=== PATIENT | female | born 1930 | race Caucasian/White ===

== ENCOUNTER 2016-08-01 07:29 | Inpatient (IN) | payer MEDICARE, BC ==
[~2016-08-01] VITALS: Ht 147.3 cm; Wt 70.8 kg
[2016-08-01 07:50] LABS: BASO % 0 % (0-3); EOS % 1 % (0-3); HEMATOCRIT 37.4 % (36.0-47.0); HEMOGLOBIN 12.8 g/dL (12.0-15.5); LYMPH # 0.8 x10^3/uL (1.0-4.8); LYMPH % 11 % (24-48); MEAN CORPUSCULAR HEMOGLOBIN 29 pg (25-35); MEAN CORPUSCULAR HGB CONC 34 g/dL (31-37); MEAN CORPUSCULAR VOLUME 84 fL (79-100); MONO % 7 % (0-9); NEUT % 80 % (31-73); PLATELET COUNT 169 x10^3/uL (140-400); RED BLOOD COUNT 4.44 x10^6/uL (3.50-5.40); RED CELL DISTRIBUTION WIDTH 13.1 % (11.5-14.5); WHITE BLOOD COUNT 7.6 x10^3/uL (4.0-11.0)
--- NOTE | 2016-08-01 07:53 | PHYS DOC ---
Past Medical History Past Medical History: A-Fib, Hypertension Adult General Chief Complaint Chief Complaint: SHORTNESS OF BREATH HPI HPI Patient is a 86 year old female who presents with shortness of breath. She has advanced Alzheimer's and is a poor historian. Daughter came to bedside and reported that the patient had increased work of breathing. She contacted EMS who reported her oxygen saturation was 88 upon arrival. Patient does not normally wear oxygen. She's been experiencing proximal atrial fibrillation, treated with metoprolol. Her blood pressure has been trending high. EMS reports her blood pressure was 215/90, troponin is was placed and the patient and the systolic pressure dropped to 144 and they removed the Nitropaste. EMS reported hearing crackles. She was also placed on BiPAP and reportedly improved significantly with the BiPAP. She received one quarter of her breathing treatment but had no wheezing and this was stopped. Patient has no history of asthma or COPD. She has exertional dyspnea but no orthopnea reported. No significant weight gain. She is followed by Dr. Glover and Dr. Ac Review of Systems Review of Systems Pt denies complaints but has Alzheimer's Constitutional: Denies fever or chills [] Eyes: Denies change in visual acuity, redness, or eye pain [] HENT: Denies nasal congestion or sore throat [] Respiratory: Denies cough or shortness of breath [] Cardiovascular: No additional information not addressed in HPI [] GI: Denies abdominal pain, nausea, vomiting, bloody stools or diarrhea [] : Denies dysuria or hematuria [] Musculoskeletal: Denies back pain or joint pain [] Integument: Denies rash or skin lesions [] Neurologic: Denies headache, focal weakness or sensory changes [] Endocrine: Denies polyuria or polydipsia [] Current Medications Current Medications Current Medications Medications (Trade) Dose Ordered Sig/Steven Start Time Stop Time Status Last Admin Dose Admin Acetaminophen (Tylenol) 650 mg PRN Q4HRS PRN 08/01/16 08:30 08/02/16 08:29 UNV Furosemide (Lasix) 20 mg 1X ONCE 08/01/16 08:30 08/01/16 08:31 DC Ondansetron HCl (Zofran) 4 mg PRN Q8HRS PRN 08/01/16 08:30 08/02/16 08:29 UNV Allergies Allergies Allergies Coded Allergies Type Severity Reaction Last Updated Verified No Known Drug Allergies 08/01/16 No Physical Exam Physical Exam Constitutional: Well developed, well nourished, no acute distress, non-toxic appearance. [] HENT: Normocephalic, atraumatic, bilateral external ears normal, oropharynx moist, no oral exudates, nose normal. [] Eyes: PERRLA, EOMI, conjunctiva normal, no discharge. [] Neck: Normal range of motion, no tenderness, supple, no stridor. [] Cardiovascular:Heart rate regular with regular rhythm, no murmur [] Lungs & Thorax: Bilateral breath sounds , moderate air movement, no appreciable crackles Abdomen: Bowel sounds normal, soft, no tenderness, no masses, no pulsatile masses. [] Skin: Warm, dry, no erythema, no rash. [] Back: No tenderness, no CVA tenderness. [] Extremities: No tenderness, no cyanosis, no clubbing, ROM intact, no edema. [] Neurologic: Alert and oriented X 3 but is confused about recent events, normal motor function, normal sensory function, no focal deficits noted. [] Psychologic: Affect normal, judgement normal, mood normal. [] Current Patient Data Vital Signs Vital Signs Date Time Temp Pulse Resp B/P (MAP) Pulse Ox O2 Delivery O2 Flow Rate FiO2 08/01/16 07:29 99.2 94 28 188/93 (124) 100 Venturi Mask 50.0 99.2 Lab Values Laboratory Tests Test 08/01/16 07:38 White Blood Count 7.6 x10^3/uL (4.0-11.0) Red Blood Count 4.44 x10^6/uL (3.50-5.40) Hemoglobin 12.8 g/dL (12.0-15.5) Hematocrit 37.4 % (36.0-47.0) Mean Corpuscular Volume 84 fL (79-100) Mean Corpuscular Hemoglobin 29 pg (25-35) Mean Corpuscular Hemoglobin Concent 34 g/dL (31-37) Red Cell Distribution Width 13.1 % (11.5-14.5) Platelet Count 169 x10^3/uL (140-400) Neutrophils (%) (Auto) 80 % (31-73) H Lymphocytes (%) (Auto) 11 % (24-48) L Monocytes (%) (Auto) 7 % (0-9) Eosinophils (%) (Auto) 1 % (0-3) Basophils (%) (Auto) 0 % (0-3) Neutrophils # (Auto) 6.1 x10^3uL (1.8-7.7) Lymphocytes # (Auto) 0.8 x10^3/uL (1.0-4.8) L Monocytes # (Auto) 0.5 x10^3/uL (0.0-1.1) Eosinophils # (Auto) 0.1 x10^3/uL (0.0-0.7) Basophils # (Auto) 0.0 x10^3/uL (0.0-0.2) Prothrombin Time 13.7 SEC (11.7-14.0) Prothrombin Time INR 1.1 (0.8-1.1) Sodium Level 127 mmol/L (136-145) L Potassium Level 4.4 mmol/L (3.5-5.1) Chloride Level 93 mmol/L (98-107) L Carbon Dioxide Level 26 mmol/L (21-32) Anion Gap 8 (6-14) Blood Urea Nitrogen 11 mg/dL (7-20) Creatinine 1.0 mg/dL (0.6-1.0) Estimated GFR (Cockcroft-Gault) 52.3 BUN/Creatinine Ratio 11 (6-20) Glucose Level 132 mg/dL (70-99) H Lactic Acid Level 1.4 mmol/L (0.4-2.0) Calcium Level 8.6 mg/dL (8.5-10.1) Magnesium Level 1.8 mg/dL (1.8-2.4) Total Bilirubin 0.8 mg/dL (0.2-1.0) Aspartate Amino Transferase (AST) 26 U/L (15-37) Alanine Aminotransferase (ALT) 22 U/L (14-59) Alkaline Phosphatase 83 U/L (46-116) Creatine Kinase 88 U/L (26-192) Creatine Kinase MB (Mass) 1.6 ng/mL (0.0-3.6) Creatine Kinase MB Relative Index 1.8 % (0-4) Troponin I Quantitative < 0.017 ng/mL (0.000-0.055) JN-Aad-Z-Type Natriuretic Peptide 1904 pg/mL (0-449) H Total Protein 7.1 g/dL (6.4-8.2) Albumin 3.4 g/dL (3.4-5.0) Albumin/Globulin Ratio 0.9 (1.0-1.7) L Laboratory Tests 08/01/16 07:38 Laboratory Tests 08/01/16 07:38 EKG EKG 94 bpm, sinus, normal axis, normal intervals, no ST elevation or depression appreciated, nonischemic T waves, interpreted by me [] Radiology/Procedures Radiology/Procedures Chest x-ray: Portable chest, 08/01/2016: History: Shortness of breath and hypoxia Comparison is made to a study from 08/23/2007. The heart is mildly enlarged. There is calcific plaquing of the aorta. The pulmonary vascularity is prominent. There is mild infrahilar infiltrate on the right. No definite pleural fluid is seen. IMPRESSION: 1. Mild cardiomegaly with borderline vascular congestion. 2. Mild right basilar infiltrate suggesting early pulmonary edema versus pneumonia. Course & Med Decision Making Course & Med Decision Making Pertinent Labs and Imaging studies reviewed. (See chart for details) Patient's O2 sats normal on BiPAP, switch to a Ventimask and was at 100%. Switched to nasal cannula and patient tolerated well. Satting 96% on 2 L nasal cannula. Labs, urinalysis ordered along with chest x-ray and EKG. Pt maintaining sats on 2L NC of 97%. Pt has increased BNP with sinus congestion and pleural effusion on CXR. Discussed with Dr. Yun, who will see the pt. 20mg IV lasix given, admitted to [facility] under Dr. Mary Jorgensen Disclaimer Dragon Disclaimer This electronic medical record was generated, in whole or in part, using a voice recognition dictation system. Departure Departure Impression: Primary Impression: Acute respiratory failure Additional Impressions: Malignant hypertension Systolic CHF, acute Referrals: SLOAN SUGGS MD (PCP) Problem Qualifiers JUDY HUDDLESTON MD August 01, 2016 07:53
--- NOTE | 2016-08-01 08:03 | RAD ---
Portable chest, 08/01/2016: History: Shortness of breath and hypoxia Comparison is made to a study from 08/23/2007. The heart is mildly enlarged. There is calcific plaquing of the aorta. The pulmonary vascularity is prominent. There is mild infrahilar infiltrate on the right. No definite pleural fluid is seen. IMPRESSION: 1. Mild cardiomegaly with borderline vascular congestion. 2. Mild right basilar infiltrate suggesting early pulmonary edema versus pneumonia.
[2016-08-01 08:06] LABS: CALCIUM 8.6 mg/dL (8.5-10.1); GFR 52.3; INR 1.1 (0.8-1.1); POTASSIUM 4.4 mmol/L (3.5-5.1); PROTHROMBIN TIME PATIENT 13.7 SEC (11.7-14.0)
[2016-08-01 08:11] LABS: ALBUMIN 3.4 g/dL (3.4-5.0); ALBUMIN/GLOBULIN RATIO 0.9 (1.0-1.7); MAGNESIUM 1.8 mg/dL (1.8-2.4); TOTAL BILIRUBIN 0.8 mg/dL (0.2-1.0); TOTAL PROTEIN 7.1 g/dL (6.4-8.2)
[2016-08-01 08:19] LABS: CKMB MASS 1.6 ng/mL (0.0-3.6)
[2016-08-01] MEDS ORDERED: ONDANSETRON PF 4 MG/2 ML VIAL. IV PRN ×2 (08:30→09:16)
[2016-08-01] MEDS ORDERED: ACETAMINOPHEN 325 MG TABLET. PO PRN (08:30)
[2016-08-01] MEDS ORDERED: FUROSEMIDE 20 MG/2 ML VIAL. IVP ONE (08:30)
--- NOTE | 2016-08-01 09:06 | ACF ---
Admission Forms Criteria RESPIRATORY FAILURE [facility] Clinical Indications for Admission to Inpatient Care (Place 'X' for any and all applicable criteria): Hospital admission is needed for appropriate care of the patient because of acute respiratory failure or insufficiency as indicated by ANY ONE of the following(1)(2)(3)(4)(5)(6)(7)(8): [X]I. Mechanical ventilation needed (acute invasive or noninvasive) [ ]II. Severe ventilation deficit as indicated by ANY ONE of the following (9) [ ]a) Respiratory acidosis (pH less than 7.32 and partial pressure of carbon dioxide greater than 40 mm Hg (5.3 kPa)) [ ]b) Partial pressure of carbon dioxide greater than 44 mm Hg (5.9 kPa ) (new) [ ]c) Airflow measurements less than 25% of predicted (eg, peak expiratory flow rate less than 100 L/minute) [ ]d) Forced vital capacity less than 15 mL/kg of ideal body weight, or 50% decrease in vital capacity from baseline [ ]III. Noncardiac pulmonary edema not resolving with rapid emergency treatment (8) [ ]IV. Severe respiratory distress as indicated by ANY ONE of the following: [ ]a) Severe tachypnea (respiratory rate greater than 30, greater than 45 for 6-month-old, greater than 60 for ) [ ]b) Severe hypoxemia (partial pressure of oxygen less than 50 mm Hg ( 6.7 kPa) on greater than 50% oxygen or partial pressure of oxygen to FIO2 ratio less than 200) [ ]c) Mental status deterioration from respiratory disease [ ]V. Airway obstruction or inadequate protection [A](10)(11) The original [employer] content created by [employer] has been revised. The portions of the content which have been revised are identified through the use of italic text or in bold, and [employer] has neither reviewed nor approved the modified material. All other unmodified content is copyright [employer]. Please see references footnoted in the original [employer] edition 2016 Admission Criteria Met?: Yes JOSHUA KUO August 01, 2016 09:06
--- NOTE | 2016-08-01 09:15 | PDOC1 ---
History and Physical Date of Admission Date of Admission DATE: 08/01/16 TIME: 09:04 Identification/Chief Complaint Chief Complaint confusion Problems: Source Source: Caregiver, Chart review, Patient History of Present Illness History of Present Illness 86 y.o female, lives at home sometimes with grandtr, but mostly by herself brought in by EMS bec of confusion, low O2 sats and high BP. PatienT not the best historian, she does not remember what has happened and dtr who is an RN fills us in with the details. As per ER MD, sats was 88% on the field, BP 215 systolic, started on BIPAP and did well, Sats now 98% on 2 LNC, no known COPD, smoked in younger yrs, HTN, does run high, some compliance issues with meds (she forgets). CXR shows dima mild pulm edema, getting 20 IVlasix now., BP did come down after the nitro paste and she does feel significantly better, SBP 150s now, Hungry, wants to eat. Does not use assistive device at home, Noteworthy, 1 month ago dx to have paroxysmal atrial fib, started on long acting BB by PCP Stuart Saini, (metoprolol) Planned for KATELYN? HAs an appt with cards as OP PLanned on xarelto or eliquis - dtr relays frequent nose bleeds LAbs: Na 127, BNP 1900, rest of labs unimpressive. Dw dtr code status, DNR, no HD, no aggressive measures. HAs been feeling unwell, fatigued, few mos now maybe, not usual for her per dtr, PE: expiratory wheeze, NSR now, no leg edema Past Medical History Cardiovascular: HTN Past Surgical History Past Surgical History: , Other (prosthetic eye left) Family History Family History: Heart Disease, High Cholestrol, Hypertension Social History Smoke: Quit ALCOHOL: none Drugs: None Current Problem List Problem List Problems Medical Problems: (1) Acute respiratory failure Status: Acute (2) Malignant hypertension Status: Acute (3) Systolic CHF, acute Status: Acute Problems: Current Medications Current Medications Current Medications Furosemide (Lasix) 20 mg 1X ONCE IVP Last administered on 08/01/16t 08:47; Start 08/01/16 at 08:30; Stop 08/01/16 at 08:31; Status DC Ondansetron HCl (Zofran) 4 mg PRN Q8HRS PRN IV NAUSEA/VOMITING; Start 08/01/16 at 08:30; Stop 08/02/16 at 08:29 Acetaminophen (Tylenol) 650 mg PRN Q4HRS PRN PO FEVER; Start 08/01/16 at 08:30 ; Stop 08/02/16 at 08:29 Allergies Allergies: Coded Allergies: No Known Drug Allergies (Unverified , 08/01/16) ROS General: YES: Fatigue Eyes: No Blurry vision, No Decreased vision, No Double vision, No Dry eyes, No Excessive tearing, No Eye Pain, No Itchy Eyes, No Loss of vision, No Photophobia , No Scotomata, No Uses contacts, No Uses glasses, No Other Hematological and Lymphatic: YES: Other (nose bleeds) ENDOCRINE: No: Breast Changes, Galactorrhea, Hair Pattern Changes, Hot Flashes , Malaise/lethargy, Mood Swings, Palpitations, Polydipsia/polyuria, Skin Changes , Temperature Intolerance, Unexpected Weight Changes, Other Respiratory: YES: Shortness of breath, SOB with excertion Cardiovascular: No Chest Pain, No Palpitations, No Orthopnea, No Paroxysmal Noc. Dyspnea, No Edema, No Lt Headedness, No Other Gastrointestinal: No Nausea, No Vomiting, No Abdominal Pain, No Diarrhea, No Constipation, No Melena, No Hematochezia, No Other Genitourinary: No Dysuria, No Frequency, No Incontinence, No Hematuria, No Retention, No Discharge, No Urgency, No Pain, No Flank Pain, No Other, No , No , No , No , No , No , No Musculoskeletal: No Gait Disturbance, No Joint Pain, No Joint Stiffness, No Joint Swelling, No Muscle Pain, No Muscular Weakness, No Pain In:, No Swelling In:, No Other Neurological: No Behavorial Changes, No Bowel/Bladder ControlChng, No Confusion , No Dizziness, No Gait Disturbance, No Headaches, No Impaired Coord/balance, No Memory Loss, No Numbness/Tingling, No Seizures, No Speech Problems, No Tremors, No Visual Changes, No Weakness, No Other Skin: No Dry Skin, No Eczema, No Hair Changes, No Lumps, No Mole Changes, No Mottling, No Nail Changes, No Pruritus, No Rash, No Skin Lesion Changes, No Other, No Acne Physical Exam General: Alert, Oriented X3, Cooperative, No acute distress HEENT: Atraumatic, PERRLA Lungs: Normal air movement, Other (some expiratory wheeze) Cardiovascular: S1, S2 Breasts: Normal Abdomen: Normal bowel sounds, Soft, No tenderness, No hepatosplenomegaly, No masses Rectal Exam: not examined PELVIC: Nml ext genitalia Extremities: No clubbing, No cyanosis, No edema, Normal pulses, No tenderness/ swelling Skin: No rashes, No breakdown, No significant lesion Neuro: Normal gait, Normal speech, Strength at 5/5 X4 ext, Normal tone, Sensation intact, Cranial nerves 3-12 NL, Reflexes 2+ Psych/Mental Status: Mental status NL, Mood NL Vitals Vitals Vital Signs Date Time Temp Pulse Resp B/P (MAP) Pulse Ox O2 Delivery O2 Flow Rate FiO2 08/01/16 08:30 92 22 164/87 (112) 97 Nasal Cannula 2.0 08/01/16 07:29 99.2 99.2 Labs Labs Laboratory Tests Test 08/01/16 07:38 White Blood Count 7.6 x10^3/uL (4.0-11.0) Red Blood Count 4.44 x10^6/uL (3.50-5.40) Hemoglobin 12.8 g/dL (12.0-15.5) Hematocrit 37.4 % (36.0-47.0) Mean Corpuscular Volume 84 fL (79-100) Mean Corpuscular Hemoglobin 29 pg (25-35) Mean Corpuscular Hemoglobin Concent 34 g/dL (31-37) Red Cell Distribution Width 13.1 % (11.5-14.5) Platelet Count 169 x10^3/uL (140-400) Neutrophils (%) (Auto) 80 % (31-73) Lymphocytes (%) (Auto) 11 % (24-48) Monocytes (%) (Auto) 7 % (0-9) Eosinophils (%) (Auto) 1 % (0-3) Basophils (%) (Auto) 0 % (0-3) Neutrophils # (Auto) 6.1 x10^3uL (1.8-7.7) Lymphocytes # (Auto) 0.8 x10^3/uL (1.0-4.8) Monocytes # (Auto) 0.5 x10^3/uL (0.0-1.1) Eosinophils # (Auto) 0.1 x10^3/uL (0.0-0.7) Basophils # (Auto) 0.0 x10^3/uL (0.0-0.2) Prothrombin Time 13.7 SEC (11.7-14.0) Prothromb Time International Ratio 1.1 (0.8-1.1) Sodium Level 127 mmol/L (136-145) Potassium Level 4.4 mmol/L (3.5-5.1) Chloride Level 93 mmol/L (98-107) Carbon Dioxide Level 26 mmol/L (21-32) Anion Gap 8 (6-14) Blood Urea Nitrogen 11 mg/dL (7-20) Creatinine 1.0 mg/dL (0.6-1.0) Estimated GFR (Cockcroft-Gault) 52.3 BUN/Creatinine Ratio 11 (6-20) Glucose Level 132 mg/dL (70-99) Lactic Acid Level 1.4 mmol/L (0.4-2.0) Calcium Level 8.6 mg/dL (8.5-10.1) Magnesium Level 1.8 mg/dL (1.8-2.4) Total Bilirubin 0.8 mg/dL (0.2-1.0) Aspartate Amino Transf (AST/SGOT) 26 U/L (15-37) Alanine Aminotransferase (ALT/SGPT) 22 U/L (14-59) Alkaline Phosphatase 83 U/L (46-116) Creatine Kinase 88 U/L (26-192) Creatine Kinase MB (Mass) 1.6 ng/mL (0.0-3.6) Creatine Kinase MB Relative Index 1.8 % (0-4) Troponin I Quantitative < 0.017 ng/mL (0.000-0.055) GU-Crr-N-Type Natriuretic Peptide 1904 pg/mL (0-449) Total Protein 7.1 g/dL (6.4-8.2) Albumin 3.4 g/dL (3.4-5.0) Albumin/Globulin Ratio 0.9 (1.0-1.7) Laboratory Tests Test 08/01/16 07:38 White Blood Count 7.6 x10^3/uL (4.0-11.0) Red Blood Count 4.44 x10^6/uL (3.50-5.40) Hemoglobin 12.8 g/dL (12.0-15.5) Hematocrit 37.4 % (36.0-47.0) Mean Corpuscular Volume 84 fL (79-100) Mean Corpuscular Hemoglobin 29 pg (25-35) Mean Corpuscular Hemoglobin Concent 34 g/dL (31-37) Red Cell Distribution Width 13.1 % (11.5-14.5) Platelet Count 169 x10^3/uL (140-400) Neutrophils (%) (Auto) 80 % (31-73) Lymphocytes (%) (Auto) 11 % (24-48) Monocytes (%) (Auto) 7 % (0-9) Eosinophils (%) (Auto) 1 % (0-3) Basophils (%) (Auto) 0 % (0-3) Neutrophils # (Auto) 6.1 x10^3uL (1.8-7.7) Lymphocytes # (Auto) 0.8 x10^3/uL (1.0-4.8) Monocytes # (Auto) 0.5 x10^3/uL (0.0-1.1) Eosinophils # (Auto) 0.1 x10^3/uL (0.0-0.7) Basophils # (Auto) 0.0 x10^3/uL (0.0-0.2) Prothrombin Time 13.7 SEC (11.7-14.0) Prothromb Time International Ratio 1.1 (0.8-1.1) Sodium Level 127 mmol/L (136-145) Potassium Level 4.4 mmol/L (3.5-5.1) Chloride Level 93 mmol/L (98-107) Carbon Dioxide Level 26 mmol/L (21-32) Anion Gap 8 (6-14) Blood Urea Nitrogen 11 mg/dL (7-20) Creatinine 1.0 mg/dL (0.6-1.0) Estimated GFR (Cockcroft-Gault) 52.3 BUN/Creatinine Ratio 11 (6-20) Glucose Level 132 mg/dL (70-99) Lactic Acid Level 1.4 mmol/L (0.4-2.0) Calcium Level 8.6 mg/dL (8.5-10.1) Magnesium Level 1.8 mg/dL (1.8-2.4) Total Bilirubin 0.8 mg/dL (0.2-1.0) Aspartate Amino Transf (AST/SGOT) 26 U/L (15-37) Alanine Aminotransferase (ALT/SGPT) 22 U/L (14-59) Alkaline Phosphatase 83 U/L (46-116) Creatine Kinase 88 U/L (26-192) Creatine Kinase MB (Mass) 1.6 ng/mL (0.0-3.6) Creatine Kinase MB Relative Index 1.8 % (0-4) Troponin I Quantitative < 0.017 ng/mL (0.000-0.055) GW-Gkc-T-Type Natriuretic Peptide 1904 pg/mL (0-449) Total Protein 7.1 g/dL (6.4-8.2) Albumin 3.4 g/dL (3.4-5.0) Albumin/Globulin Ratio 0.9 (1.0-1.7) VTE Prophylaxis Ordered VTE Prophylaxis Devices: Yes VTE Pharmacological Prophylaxi: Yes Assessment/Plan Assessment/Plan 1. FLash pulm edema 2. Acute hypoxic respir failure s/p NIPPV 3. HTN emergency POA, resolved 4. HYponatremia in radha background of MEGAN inhibitor use 5. EPistaxis hx 6. PAroxysmal atrial fib - dx recently (1 month ago), CHADS 3 7. Dementia on aricept 8. Metbolci enceph POA sec to # 1 and # 2 9, MIld to mod PCM 10. DNR PLAN: Admit 2 [place] CVC CARds consult Echo - KATELYN vs TTE CHADS score is 3 - then again the issues of bleeding - dw dtr PT/OT Resume home meds including BB (metoprolol) if ok with cards SCDs MOnitor hyponatremia - does not wish to be aggressive (no renal consult etc) DNR Goal: quick admit and dc soon - dw dtr KAY Nicole MD August 01, 2016 09:15
[2016-08-01] MEDS ORDERED: ATOR10TA60 (10:22)
[2016-08-01] MEDS ORDERED: LISI30TA4 (10:22)
[2016-08-01] MEDS ORDERED: ISOS60TA2 (10:22)
[2016-08-01] MEDS ORDERED: DONE5TAB7 (10:22)
[2016-08-01] MEDS ORDERED: METO100T11 PO (10:24)
[2016-08-01] MEDS ORDERED: DOCU-27 PO (10:25)
[2016-08-01 11:00] VITALS: BP 156/73
[2016-08-01] MEDS ORDERED: LISINOPRIL 10 MG TABLET PO SCH (11:00)
[2016-08-01] MEDS: METOPROLOL TART IMMED RELEASE 50 MG TABLET. PO SCH ×2 (11:37→20:41)
[2016-08-01] MEDS: DOCUSATE SODIUM 100 MG CAPSULE. PO SCH ×2 (11:37→20:40)
[2016-08-01] MEDS: LISINOPRIL 20 MG TABLET PO SCH ×2 (11:38→20:40)
[2016-08-01] MEDS: ISOSORBIDE MONONITRATE ER 60 MG TAB.ER.24H. PO SCH (11:38)
[2016-08-01 15:00] VITALS: BP 153/66
--- NOTE | 2016-08-01 15:19 | EKG ---
[facility] [address] [place] [address] Test Date: 2016-08-01 Test Time: 07:35:01 Pat Name: ANTONIO ACUNA Department: Room: 202 1 Gender: Multiple Resaw Operator: : [id number] Requested By: JUDY HUDDLESTON Order Number: [id number] Reading MD: Jalen Agrawal Measurements Intervals Armour Rate: P: FL: QRS: QRSD: T: QT: QTc: Interpretive Statements SINUS TACHYCARDIA PACS Electronically Signed On 08-06-2016 13:58:50 CDT by Jalen Agrawal
--- NOTE | 2016-08-01 18:36 | CARD ---
APPROVED REPORT EXAM: Two-dimensional and M-mode echocardiogram with Doppler and color Doppler. Other Information Quality : Fair Rhythm : NSR INDICATION Atrial Fibrillation Congestive Heart Failure 2D DIMENSIONS RVDd2.6 (2.9-3.5cm)Left Atrium(2D)4.2 (1.6-4.0cm) IVSd1.4 (0.7-1.1cm)Aortic Root(2D)2.4 (2.0-3.7cm) LVDd2.9 (3.9-5.9cm)LVOT Diameter2.0 (1.8-2.4cm) PWd1.3 (0.7-1.1cm)LVDs2.1 (2.5-4.0cm) FS (%) 25.8 %SV16.4 ml LVEF(%)50.0 (>50%) Aortic Valve AoV Peak Roderick.185.4cm/sAoV VTI33.0cm AO Peak GR.13.7mmHgLVOT VTI 19.10cm AO Mean GR.9mmHgAI P 1/2 [id number] Mitral Valve MV E Lhppexsi686.4cm/sMV E Peak Gr.5mmHg MV DECEL [id number] A Rwaujopm73.9cm/s MV PLL41dsN/A Ratio1.3 MV A Ktippqmb240xpHTP (PHT)4.78cm2 TDI Lateral E' P. V12.53cm/sMedial E' P. V12.34cm/s E/Lateral E'8.1E/Medial E'8.2 Tricuspid Valve TR P. Ugbqvxcu920ab/sRAP [id number] TR Peak Gr.[id number] LEFT VENTRICLE The left ventricle is normal size. There is mild concentric left ventricular hypertrophy. Left ventri kylee systolic function is normal. The Ejection Fraction is 50%. There is normal LV segmental wall maya on. The left ventricular diastolic function and filling is normal for age. RIGHT VENTRICLE The right ventricle is normal size. The right ventricular systolic function is normal. ATRIA The left atrium is borderline dilated. The right atrium size is normal. The interatrial septum is int act with no evidence for an atrial septal defect or patent foramen ovale as noted on 2-D or Doppler i maging. AORTIC VALVE The aortic valve is not well visualized. Calcium is seen. Doppler and Color Flow revealed mild aortic regurgitation. There is no significant aortic valvular stenosis. MITRAL VALVE Mitral annular calcification is mild. There is no mitral valve stenosis. Doppler and Color Flow revea led mild mitral regurgitation. TRICUSPID VALVE The tricuspid valve is not well visualized. Doppler and Color Flow revealed mild tricuspid regurgitat ion. The PA pressure was estimated at 37 mmHg. There is no tricuspid valve stenosis. PULMONIC VALVE The pulmonic valve is not well visualized. Doppler and Color Flow revealed no pulmonic valvular regur gitation. There is no pulmonic valvular stenosis. GREAT VESSELS The aortic root is normal in size. The IVC is normal in size and collapses >50% with inspiration. PERICARDIAL EFFUSION There is no evidence of significant pericardial effusion. Critical Notification Critical Value: No <Conclusion> Left ventricle systolic function is normal. The Ejection Fraction is 50%. There is mild concentric left ventricular hypertrophy. The left atrium is borderline dilated. The right atrium size is normal. Doppler and Color Flow revealed mild aortic regurgitation. Mitral annular calcification is mild. Doppler and Color Flow revealed mild mitral regurgitation. Doppler and Color Flow revealed mild tricuspid regurgitation. The PA pressure was estimated at 37 mmHg. The pulmonic valve is not well visualized. There is no evidence of significant pericardial effusion. No thrombus was seen in any of the chambers.
--- NOTE | 2016-08-01 18:58 | PDOC2 ---
CONSULT Date of Consult Date of Consult DATE: 08/01/16 TIME: 18:45 Reason for Consult Reason for Consult: Dyspnea and arrhythmia Referring Physician Referring Physician: Dr. Mei Identification/Chief Complaint Chief Complaint Dyspnea History of Present Illness Reason for Visit: This patient is a very pleasant 86-year-old lady that has a known history of hypertension and advanced Alzheimer's. She went to see Dr. Ac and was found to be having episodes of atrial fibrillation. The patient was supposed to come to see me next week in the office as an outpatient but she developed progressive dyspnea that brought her to the emergency room. On arrival she was found to be having a blood pressure of over 200 and a decreased O2 sats. The patient was in sinus tachycardia when she arrived. She was given medications to help lower the blood pressure as well as O2 and she gradually improved. At the time that I examined the patient she denies having any chest pains, she denies any cardiac problems. She denies any palpitation. She is a very poor historian due to Alzheimer's. Past Medical History Cardiovascular: HTN CENTRAL NERVOUS SYSTEM: Dementia Past Surgical History Past Surgical History: , Other (prosthetic eye left) Family History Family History: Heart Disease, High Cholestrol, Hypertension Social History Quit ALCOHOL: none Drugs: None Current Problem List Problem List Problems Medical Problems: (1) Acute respiratory failure Status: Acute (2) Malignant hypertension Status: Acute (3) Systolic CHF, acute Status: Acute Current Medications Current Medications Current Medications Furosemide (Lasix) 20 mg 1X ONCE IVP Last administered on 08/01/16t 08:47; Start 08/01/16 at 08:30; Stop 08/01/16 at 08:31; Status DC Ondansetron HCl (Zofran) 4 mg PRN Q8HRS PRN IV NAUSEA/VOMITING; Start 08/01/16 at 08:30; Stop 08/01/16 at 09:18; Status DC Acetaminophen (Tylenol) 650 mg PRN Q4HRS PRN PO FEVER; Start 08/01/16 at 08:30 ; Stop 08/02/16 at 08:29 Ondansetron HCl (Zofran) 4 mg PRN Q6HRS PRN IV NAUSEA/VOMITING; Start 08/01/16 at 09:16; Stop 08/02/16 at 09:15 Atorvastatin Calcium (Lipitor) 10 mg HS PO ; Start 08/01/16 at 21:00 Docusate Sodium (Colace) 100 mg BID PO Last administered on 08/01/16 11:37; Start 08/01/16 at 11:00 Donepezil HCl (Aricept) 5 mg HS PO ; Start 08/01/16 at 21:00 Isosorbide Mononitrate (Imdur) 60 mg DAILY PO Last administered on 08/01/16 11 :38; Start 08/01/16 at 11:00 Metoprolol Succinate (Toprol Xl) 100 mg HS PO ; Start 08/01/16 at 21:00; Stop at 21:00; Status DC Lisinopril (Prinivil) 30 mg DAILY PO ; Start 08/01/16 at 11:00; Stop 08/01/16 at 11:00; Status DC Lisinopril (Prinivil) 20 mg BID PO Last administered on 08/01/16 11:38; Start 08/01/16 at 11:30 Metoprolol Tartrate (Lopressor) 50 mg BID PO Last administered on 08/01/16 11: 37; Start 08/01/16 at 11:30 Active Scripts Active Reported Colace (Docusate Sodium) 100 Mg Capsule 1 Cap PO BID Metoprolol Succinate ( Xl ) (Metoprolol Succinate) 100 Mg Tab.er.24h 100 Mg PO HS Atorvastatin Calcium 10 Mg Tablet Lisinopril 30 Mg Tablet Isosorbide Mononitrate Er (Isosorbide Mononitrate) 60 Mg Tab.er.24h Donepezil Hcl 5 Mg Tablet Allergies Allergies: Coded Allergies: No Known Drug Allergies (Unverified , 08/01/16) Physical Exam Physical Exam The patient was not in acute distress at the time of the examination. H EENT pupils are reactive, oral mucosa dry. Neck is supple no JVD. Lungs breath sounds are mildly decreased but no wheezing, no Rales. Heart regular rate and rhythm, tachycardic, S1 and S2, 1 to 2/6 systolic murmur at the apex radiating to the base. Abdomen soft bowel sounds are present. Extremities 1+ edema. Vitals VITALS Vital Signs Date Time Temp Pulse Resp B/P (MAP) Pulse Ox O2 Delivery O2 Flow Rate FiO2 08/01/16 15:00 99.3 87 18 153/66 (95) 94 Room Air 99.3 08/01/16 08:30 2.0 Labs Labs Laboratory Tests Test 08/01/16 07:38 08/01/16 14:30 White Blood Count 7.6 x10^3/uL (4.0-11.0) Red Blood Count 4.44 x10^6/uL (3.50-5.40) Hemoglobin 12.8 g/dL (12.0-15.5) Hematocrit 37.4 % (36.0-47.0) Mean Corpuscular Volume 84 fL (79-100) Mean Corpuscular Hemoglobin 29 pg (25-35) Mean Corpuscular Hemoglobin Concent 34 g/dL (31-37) Red Cell Distribution Width 13.1 % (11.5-14.5) Platelet Count 169 x10^3/uL (140-400) Neutrophils (%) (Auto) 80 % (31-73) Lymphocytes (%) (Auto) 11 % (24-48) Monocytes (%) (Auto) 7 % (0-9) Eosinophils (%) (Auto) 1 % (0-3) Basophils (%) (Auto) 0 % (0-3) Neutrophils # (Auto) 6.1 x10^3uL (1.8-7.7) Lymphocytes # (Auto) 0.8 x10^3/uL (1.0-4.8) Monocytes # (Auto) 0.5 x10^3/uL (0.0-1.1) Eosinophils # (Auto) 0.1 x10^3/uL (0.0-0.7) Basophils # (Auto) 0.0 x10^3/uL (0.0-0.2) Prothrombin Time 13.7 SEC (11.7-14.0) Prothromb Time International Ratio 1.1 (0.8-1.1) Sodium Level 127 mmol/L (136-145) Potassium Level 4.4 mmol/L (3.5-5.1) Chloride Level 93 mmol/L (98-107) Carbon Dioxide Level 26 mmol/L (21-32) Anion Gap 8 (6-14) Blood Urea Nitrogen 11 mg/dL (7-20) Creatinine 1.0 mg/dL (0.6-1.0) Estimated GFR (Cockcroft-Gault) 52.3 BUN/Creatinine Ratio 11 (6-20) Glucose Level 132 mg/dL (70-99) Lactic Acid Level 1.4 mmol/L (0.4-2.0) Calcium Level 8.6 mg/dL (8.5-10.1) Magnesium Level 1.8 mg/dL (1.8-2.4) Total Bilirubin 0.8 mg/dL (0.2-1.0) Aspartate Amino Transf (AST/SGOT) 26 U/L (15-37) Alanine Aminotransferase (ALT/SGPT) 22 U/L (14-59) Alkaline Phosphatase 83 U/L (46-116) Creatine Kinase 88 U/L (26-192) Creatine Kinase MB (Mass) 1.6 ng/mL (0.0-3.6) Creatine Kinase MB Relative Index 1.8 % (0-4) Troponin I Quantitative < 0.017 ng/mL (0.000-0.055) < 0.017 ng/mL (0.000-0.055) JN-Kaq-U-Type Natriuretic Peptide 1904 pg/mL (0-449) Total Protein 7.1 g/dL (6.4-8.2) Albumin 3.4 g/dL (3.4-5.0) Albumin/Globulin Ratio 0.9 (1.0-1.7) Thyroid Stimulating Hormone (TSH) 1.736 uIU/mL (0.358-3.74) Free Thyroxine 1.19 ng/dL (0.76-1.46) Laboratory Tests Test 08/01/16 07:38 08/01/16 14:30 White Blood Count 7.6 x10^3/uL (4.0-11.0) Red Blood Count 4.44 x10^6/uL (3.50-5.40) Hemoglobin 12.8 g/dL (12.0-15.5) Hematocrit 37.4 % (36.0-47.0) Mean Corpuscular Volume 84 fL (79-100) Mean Corpuscular Hemoglobin 29 pg (25-35) Mean Corpuscular Hemoglobin Concent 34 g/dL (31-37) Red Cell Distribution Width 13.1 % (11.5-14.5) Platelet Count 169 x10^3/uL (140-400) Neutrophils (%) (Auto) 80 % (31-73) Lymphocytes (%) (Auto) 11 % (24-48) Monocytes (%) (Auto) 7 % (0-9) Eosinophils (%) (Auto) 1 % (0-3) Basophils (%) (Auto) 0 % (0-3) Neutrophils # (Auto) 6.1 x10^3uL (1.8-7.7) Lymphocytes # (Auto) 0.8 x10^3/uL (1.0-4.8) Monocytes # (Auto) 0.5 x10^3/uL (0.0-1.1) Eosinophils # (Auto) 0.1 x10^3/uL (0.0-0.7) Basophils # (Auto) 0.0 x10^3/uL (0.0-0.2) Prothrombin Time 13.7 SEC (11.7-14.0) Prothromb Time International Ratio 1.1 (0.8-1.1) Sodium Level 127 mmol/L (136-145) Potassium Level 4.4 mmol/L (3.5-5.1) Chloride Level 93 mmol/L (98-107) Carbon Dioxide Level 26 mmol/L (21-32) Anion Gap 8 (6-14) Blood Urea Nitrogen 11 mg/dL (7-20) Creatinine 1.0 mg/dL (0.6-1.0) Estimated GFR (Cockcroft-Gault) 52.3 BUN/Creatinine Ratio 11 (6-20) Glucose Level 132 mg/dL (70-99) Lactic Acid Level 1.4 mmol/L (0.4-2.0) Calcium Level 8.6 mg/dL (8.5-10.1) Magnesium Level 1.8 mg/dL (1.8-2.4) Total Bilirubin 0.8 mg/dL (0.2-1.0) Aspartate Amino Transf (AST/SGOT) 26 U/L (15-37) Alanine Aminotransferase (ALT/SGPT) 22 U/L (14-59) Alkaline Phosphatase 83 U/L (46-116) Creatine Kinase 88 U/L (26-192) Creatine Kinase MB (Mass) 1.6 ng/mL (0.0-3.6) Creatine Kinase MB Relative Index 1.8 % (0-4) Troponin I Quantitative < 0.017 ng/mL (0.000-0.055) < 0.017 ng/mL (0.000-0.055) VR-Jjl-N-Type Natriuretic Peptide 1904 pg/mL (0-449) Total Protein 7.1 g/dL (6.4-8.2) Albumin 3.4 g/dL (3.4-5.0) Albumin/Globulin Ratio 0.9 (1.0-1.7) Thyroid Stimulating Hormone (TSH) 1.736 uIU/mL (0.358-3.74) Free Thyroxine 1.19 ng/dL (0.76-1.46) Assessment/Plan Assessment/Plan This patient comes in with uncontrolled hypertension and paroxysmal atrial fibrillation. At the present time she is in sinus rhythm. I would like to start her on metoprolol 50 mg by mouth twice a day. Lisinopril 20 mg twice a day. An Elliquist 2.5 mg by mouth daily. We will get an echocardiogram to evaluate the left ventricular function as well as the left atrial size and possible presence of thrombus. Thank you very much for asking me to participate in the care of this patient YOUNG PICKETT MD August 01, 2016 18:58
[2016-08-01 19:00] VITALS: BP 171/99
[2016-08-01] MEDS ORDERED: METOPROLOL SUCC 24HR ER 100 MG TAB.ER.24H. PO SCH (21:00)
[2016-08-01] MEDS ORDERED: DONEPEZIL HCL 5 MG TABLET. PO SCH (21:00)
[2016-08-01] MEDS ORDERED: ATORVASTATIN CALCIUM 10 MG TABLET. PO SCH (21:00)
[2016-08-01 23:14] VITALS: BP 152/64
[2016-08-02 02:52] VITALS: BP 150/81
[2016-08-02 06:24] LABS: CALCIUM 8.7 mg/dL (8.5-10.1); GFR 52.3; POTASSIUM 3.9 mmol/L (3.5-5.1)
[2016-08-02 07:00] VITALS: BP 173/80
[2016-08-02] MEDS: DOCUSATE SODIUM 100 MG CAPSULE. PO SCH (08:00)
[2016-08-02 08:01] VITALS: BP 150/81
[2016-08-02] MEDS: ISOSORBIDE MONONITRATE ER 60 MG TAB.ER.24H. PO SCH (08:01)
[2016-08-02] MEDS: METOPROLOL TART IMMED RELEASE 50 MG TABLET. PO SCH (08:01)
[2016-08-02] MEDS: LISINOPRIL 20 MG TABLET PO SCH (08:01)
[2016-08-02] MEDS ORDERED: APIX2.5T PO (09:29)
[2016-08-02] MEDS ORDERED: METO50TA2 PO (09:29)
[2016-08-02] MEDS ORDERED: LISI-334 PO (09:29)
[2016-08-02] MEDS ORDERED: FURO-68 PO (09:30)
--- NOTE | 2016-08-02 21:16 | DS ---
DATE OF DISCHARGE: 08/02/2016 DISCHARGE DIAGNOSES: 1. Acute hypoxic respiratory failure likely due to acute on chronic diastolic heart failure. 2. Hypernatremia, stable. 3. Paroxysmal atrial fibrillation, currently in sinus rhythm. 4. Dementia. 5. ____Paroxysmal atrial fibrillation history, on Eliquis. 6. Uncontrolled hypertension, hypertensive emergency at presentation. BRIEF HOSPITAL COURSE: An 86-year-old female patient admitted to the hospital for uncontrolled hypertension and acute hypoxic respiratory failure and she was placed on noninvasive positive pressure ventilation and symptoms improved with Lasix and blood pressure control. She had an echocardiogram, showed normal LV ejection fraction; however, she could have developed pulmonary congestion due to tachycardia and paroxysmal atrial fibrillation. She was placed on 50 mg of metoprolol b.i.d. with lisinopril and p.r.n. Lasix. She was evaluated by Dr. Yun and recommended to discharge home with followup in 2 weeks. The patient has been sent home in stable condition with all new scripts along with Eliquis. Discussed with the patient's daughter, Rebecca who is a RN here and risks, benefits and alternatives were explained. DISCHARGE EXAMINATION: GENERAL: Alert, oriented x 2 at baseline. HEART: S1, S2 present. LUNGS: Anterior chest clear. ABDOMEN: Soft, nontender, no organomegaly. EXTREMITIES: No edema. DISCHARGE DISPOSITION: Home. DISCHARGE MEDICATIONS: Reviewed and reconciled. Please see my MRAD. DISCHARGE DIET: Cardiac diet. FOLLOWUP: With Dr. Yun in 2 weeks. Total time spent for discharge is 35 minutes for patient education, counseling and coordination of care. LASHELL PEGUERO MD DR: SHAGUFTA/sanaz JOB#: [id number] / [id number]
== END 2016-08-02 11:35 | disposition home or self-care (01) | DRG 291 ==
LOC: ER 07:29 → 2 NORTH 08:29
PROVIDERS: ADMIT Internal Medicine; ATTEND Internal Medicine
PROC: 5A09357 Assistance with Respiratory Ventilation, Less than 24 Consecutive Hours, Continuous Positive Airway Pressure (ICD-10-PCS; principal; 2016-08-01)
DX: I50.43 Acute on chronic combined systolic (congestive) and diastolic (congestive) heart failure (principal); G93.41 Metabolic encephalopathy; J96.01 Acute respiratory failure with hypoxia; E87.1 Hypo-osmolality and hyponatremia; I16.1 Hypertensive emergency; I13.0 Hypertensive heart and chronic kidney disease with heart failure and stage 1 through stage 4 chronic kidney disease, or unspecified chronic kidney disease; E44.0 Moderate protein-calorie malnutrition; I48.0 Paroxysmal atrial fibrillation; F02.80 Dementia in other diseases classified elsewhere, unspecified severity, without behavioral disturbance, psychotic disturbance, mood disturbance, and anxiety; G30.9 Alzheimer's disease, unspecified; R04.0 Epistaxis; Z66 Do not resuscitate; Z79.899 Other long term (current) drug therapy; Z82.49 Family history of ischemic heart disease and other diseases of the circulatory system; Z97.0 Presence of artificial eye; N18.3 Chronic kidney disease, stage 3 (moderate)
CPT/HCPCS: 36415; 71010; 80048; 80053; 82553; 83605; 83735; 83880; 84439; 84443; 84484; 85027; 85610; 87040; 93005; 93306; 96374; 99285-25